=== PATIENT | male | born 1995 | race Caucasian/White ===

== ENCOUNTER 2022-08-15 19:01 | Emergency (ER) | payer MEDICAID ==
[~2022-08-15] VITALS: Ht 160 cm; Wt 65.9 kg
[2022-08-15] MEDS ORDERED: PROPARACAINE HCL 0.5% 15 ML OPHTHALMIC SOLUTION OD ONE (19:30)
[2022-08-15] MEDS ORDERED: FLUORESCEIN SODIUM 1 MG STRIP OD ONE (19:30)
[2022-08-15] MEDS ORDERED: IBUP-2070 PO (19:44)
[2022-08-15] MEDS ORDERED: ERYT3.5O8 OU (19:44)
[2022-08-15 19:52] VITALS: BP 124/78
== END 2022-08-15 19:54 | disposition home or self-care (01) ==
LOC: EMS 19:01
DX: H20.9 Unspecified iridocyclitis (principal)
CPT/HCPCS: 99283